=== PATIENT | female | born 1995 | race Caucasian/White ===

== ENCOUNTER 2017-04-26 22:33 | Emergency (ER) | payer SELFPAY ==
[~2017-04-26] VITALS: Ht 160 cm; Wt 55.0 kg
[2017-04-26] MEDS ORDERED: SODIUM CHLORIDE 0.9% 1,000 ML IV ONE (23:00)
[2017-04-26] MEDS ORDERED: CHLORDIAZEPOXIDE 5 MG CAPSULE PO ONE (23:30)
[2017-04-26 23:43] LABS: HEMATOCRIT 42.8 % (36.0-48.0); HEMOGLOBIN 14.5 g/dL (12.0-16.0); MEAN CORPUSCULAR VOLUME 88.7 fL (81.0-99.0); PLATELET 336 x1000/uL (130-400); RED BLOOD CELL COUNT 4.82 mill/uL (4.2-5.4); RED CELL DISTRIBUTION WIDTH 13.3 % (11.6-14.6)
[2017-04-26 23:46] LABS: CARBON DIOXIDE 27 mEq/L (21-32); CHLORIDE 99 mEq/L (98-107); CREATINE KINASE 107 IU/L (26-192); ETHANOL BLOOD < 10 mg/dL
[2017-04-27] MEDS ORDERED: LORAZEPAM 2MG/ML CPJ IV ONE (00:45)
[2017-04-27] MEDS ORDERED: SODIUM CHLORIDE 0.9% 1,000 ML IV ONE (00:45)
[2017-04-27 02:05] LABS: CLARITY URINE CLEAR (CLEAR); COLOR URINE YELLOW (YELLOW); KETONES URINE 1+ (NEGATIVE); LEUKOCYTE ESTERASE URINE 3+ (NEGATIVE); NITRITE URINE NEGATIVE (NEGATIVE); OCCULT BLOOD URINE NEGATIVE (NEGATIVE); PROTEIN URINE NEGATIVE (NEGATIVE); SPECIFIC GRAVITY URINE 1.013 (1.005-1.030); UROBILINOGEN URINE 0.2 E.U./dL (0.2-1.0)
[2017-04-27 02:11] LABS: UCG SCREEN NEGATIVE
[2017-04-27] MEDS ORDERED: ACETAMINOPHEN 650MG/20.3ML UDC PO ONE (03:00)
[2017-04-27] MEDS ORDERED: CEFTRIAXONE 1 G PREMIX 50 ML IV SCH (03:15)
[2017-04-27 04:27] VITALS: BP 127/67
== END 2017-04-27 04:29 | disposition home or self-care (01) ==
LOC: ER 22:48
DX: S01.512A Laceration without foreign body of oral cavity, initial encounter (principal); R56.9 Unspecified convulsions; F10.10 Alcohol abuse, uncomplicated; J45.909 Unspecified asthma, uncomplicated; X58.XXXA Exposure to other specified factors, initial encounter; Y93.89 Activity, other specified; Y92.89 Other specified places as the place of occurrence of the external cause; Y99.8 Other external cause status; Y90.9 Presence of alcohol in blood, level not specified
CPT/HCPCS: 36415; 80048; 81001; 81025; 82550; 83735; 85027; 96361; 96365; 96375; 99284; G0482; J0696; J2060; J7030